=== PATIENT | female | born 2000 | race Caucasian/White ===

== ENCOUNTER 2021-09-03 23:58 | Emergency (ER) | payer OTHER ==
[2021-09-04] MEDS ORDERED: Famotidine 20 MG TAB ONE (00:48)
[2021-09-04] MEDS ORDERED: methylPREDNISolone Sod Succ/PF 125 MG/2 ML VIAL ONE (00:48)
[2021-09-04] MEDS ORDERED: diphenhydrAMINE 25 MG CAP ONE (00:48)
[2021-09-04] MEDS ORDERED: Dexamethasone 10 MG/ML VIAL ONE (00:49)
== END 2021-09-04 01:07 | disposition home or self-care (01) ==
LOC: MADERS 23:58
DX: L27.0 Generalized skin eruption due to drugs and medicaments taken internally (principal); T36.3X5A Adverse effect of macrolides, initial encounter
CPT/HCPCS: 96372; 99283; J1100; J2930